=== PATIENT | female | born 2000 | race African-American/Black ===

== ENCOUNTER → 2018-03-20 | Outpatient (CLI) | payer OTHER ==
[2018-03-21 20:13] LABS: CHLAMYDIA TRACHOMATIS, NAA Negative (Negative); NEISSERIA GONORRHOEAE, NAA Negative (Negative)
== END | disposition home or self-care (01) ==
LOC: LAB SHORT 09:53 → LAB 09:53
PROVIDERS: Advanced Practice Midwife
DX: Z11.3 Encounter for screening for infections with a predominantly sexual mode of transmission (principal)
CPT/HCPCS: 87491; 87591

== ENCOUNTER → 2019-02-27 | Outpatient (CLI) | payer OTHER ==
[2019-03-02 11:07] LABS: CHLAMYDIA BY NAA Negative (Negative); GONOCOCCUS BY NAA Negative (Negative); TRICH VAG BY NAA Negative (Negative)
== END | disposition home or self-care (01) ==
LOC: LAB SHORT 15:17 → LAB 15:17
PROVIDERS: Advanced Practice Midwife
DX: Z11.3 Encounter for screening for infections with a predominantly sexual mode of transmission (principal)
CPT/HCPCS: 87491; 87591; 87661

== ENCOUNTER 2019-07-01 08:56 | Day surgery (SDC) | payer OTHER ==
[~2019-07-01] VITALS: Ht 165.1 cm; Wt 64.5 kg
[~2019-07-01 08:56] MED LIST: ALBU90OI INH; ALLER-TEC PO; Inderal40 MG PO; Protopic100 GM TOP; Prozac40 MG PO; TRIA15CR3 TOP
--- NOTE | 2019-07-01 10:29 | NUR ---
Ambulatory in Day Surgery. Surgical site prepped with 2% Chlorhexidine cloth wipe. Pre-Op teaching done. Pt verbalizes understanding. History, Chart, Medications and Allergies reviewed before start of procedure. Lungs clear T/O to Auscultation. Patient confirms NPO status and agrees with scheduled surgery. Pre-Op teaching done. Pt verbalizes understanding. Patient States Post-Procedure ride home has been arranged. Patient reports completing Chlorhexadine shower X2 prior to admission to hospital.
--- NOTE | 2019-07-01 14:32 | NUR ---
PT BROUGHT FROM PACU ALERT AND ORIENTED, C/O OF SOME DIZZINESS. PT 4 INCISION SITES TO ABDOMEN. LEFT SIDE WITH GAUZE AND MEFIX, RIGHT SIDE AND UMBILICAL WITH STERI STRIPS IN PLACE, ALL CDI. THEO PAD WITH NO BLEEDING NOTED.
--- NOTE | 2019-07-01 16:15 | NUR ---
PT DRESSINGS REMAINED CDI T/O RECOVERY. PT HAD SMALL AMOUNT OF SANG CLOTTING DRAINAGE ON THEO PAD WITH STANDING UP. PROVIDED THEO CARE, REPLACED THEO PAD AND MONITORED CLOSELY. SCANT DRAINAGE NOTED PRIOR TO DISCHARGING TO HOME. VSS RETURNED TO NORMAL EVEN AFTER AMBULATING TO THE BATHROOM. DRANK A TOTAL OF 720CC FLUIDS T/O RECOVERY.TOLERATED PO SNACK AND ONE PAIN PILL. Patient up to Ambulate independently. Gait steady. Discharge instructions reviewed with patient. Patient verbalizes understanding. Copy given to patient to take home. Patient States Post-Procedure ride home has been arranged. Discharged via wheelchair to private car for ride home. ALL BELONINGS RETURNED TO PATIENT.
[2019-07-01] MEDS ORDERED: CETI5 ×2 (19:58)
[2019-07-02] MEDS ORDERED: IBUP800 PO ×2 (00:38)
[2019-07-02] MEDS ORDERED: Norco 10-325 T1 EACH PO ×2 (00:41)
--- NOTE | 2019-07-02 11:11 | NUR ---
07/02/19 1111 Reny Ayon VERIFICATIONS: EDIT CHART.
== END 2019-07-01 22:55 | disposition home or self-care (01) ==
LOC: ORSCMMR 08:56 → ORD 11:30 → ORSCMMR 11:30
PROVIDERS: Obstetrics & Gynecology
PROC: 0UB24ZZ Excision of Bilateral Ovaries, Percutaneous Endoscopic Approach (ICD-10-PCS; principal; 2019-07-01 10:30)
DX: D27.1 Benign neoplasm of left ovary (principal); F41.9 Anxiety disorder, unspecified; Z79.899 Other long term (current) drug therapy
CPT/HCPCS: 84703; 88305; A9270-GY; J0330; J1100; J1885; J2250; J2405; J2704; J3010; J7120

== ENCOUNTER 2019-07-01 19:47 | Observation (INO) | payer OTHER ==
[~2019-07-01] VITALS: Ht 170.2 cm; Wt 66.5 kg
[2019-07-01] MEDS ORDERED: CETI5 ×2 (19:58)
[2019-07-01 20:24] LABS: BASOPHILS ABSOLUTE AUTO 0.02 K/mm3 (0.00-0.23); BASOPHILS PERCENT AUTO 0 % (0-2); EOSINOPHILS PERCENT AUTO 0 % (0-6); Hematocrit 34.2 % (33.0-51.0); Hemoglobin 11.2 g/dL (11.5-16.0); IMMATURE GRAN ABSOLUTE AUTO 0.06 K/mm3 (0.00-0.10); IMMATURE GRAN PERCENT AUTO 0 % (0-1); LYMPHOCYTES ABSOLUTE AUTO 1.22 K/mm3 (0.84-5.20); LYMPHOCYTES PERCENT AUTO 8 % (21-46); MONOCYTES ABSOLUTE AUTO 0.78 K/mm3 (0.16-1.47); MONOCYTES PERCENT AUTO 5 % (4-13); Mean Corpuscular HGB Conc 32.7 g/dL (31.5-36.5); Mean Corpuscular Volume 95 fL (80-100); Mean Platelet Volume 10.8 fL (9.1-12.4); NEUTROPHILS ABSOLUTE AUTO 13.19 K/mm3 (1.96-9.15); NEUTROPHILS PERCENT AUTO 86 % (41-73); Platelet Count 247 K/mm3 (150-400); RDW Coefficient Variation 11.8 % (11.7-14.2); RDW Standard Deviation 40.7 fL (35.1-46.3); Red Blood Cell Count 3.61 M/mm3 (3.80-5.20); White Blood Cell Count 15.27 K/mm3 (4.00-11.30)
[2019-07-01 20:45] LABS: Alanine Aminotransfer (ALT/SGP 14 U/L (12-78); Albumin, Blood 3.2 g/dL (3.4-5.0); Albumin/Globulin Ratio 1.3 (0.8-1.8); Alk Phos 36 U/L (50-136); Anion Gap 9 mmol/L (6-16); Aspartate Aminotrans (AST/SGOT 11 U/L (12-37); Bilirubin, Total 0.8 mg/dL (0.1-1.0); Blood Urea Nitrogen 9 mg/dL (8-24); Bun/Creatinine Ratio 13.4 (12.0-20.0); CO2, Blood 23 mmol/L (21-32); Calcium, Blood 7.6 mg/dL (8.5-10.1); Chloride, Blood 104 mmol/L (98-108); Creatinine, Blood 0.67 mg/dL (0.40-1.00); Globulin, Blood 2.5 g/dL (2.2-4.0); Glomerular Filtration Rate >60 (60-); Glucose, Blood 179 mg/dL (70-99); Potassium, Blood 3.8 mmol/L (3.5-5.5); Sodium, Blood 136 mmol/L (136-145); Total Protein, Blood 5.7 g/dL (6.4-8.2)
--- NOTE | 2019-07-01 23:52 | NUR ---
2345 PT ADMITTED TO ROOM 231 PER CART FROM ER; MOTHER AT SIDE AND SUPPORTIVE.
[2019-07-02] MEDS ORDERED: IBUP800 PO ×2 (00:38)
[2019-07-02] MEDS ORDERED: Norco 10-325 T1 EACH PO ×2 (00:41)
[2019-07-02 04:40] LABS: Source, Urine Clean Catch
[2019-07-02 04:45] LABS: Hematocrit 29.3 % (33.0-51.0); Hemoglobin 9.4 g/dL (11.5-16.0); Mean Corpuscular HGB 30.4 pg (26.0-34.0); Mean Corpuscular HGB Conc 32.1 g/dL (31.5-36.5); Mean Corpuscular Volume 95 fL (80-100); Mean Platelet Volume 11.2 fL (9.1-12.4); Platelet Count 212 K/mm3 (150-400); RDW Standard Deviation 41.3 fL (35.1-46.3); Red Blood Cell Count 3.09 M/mm3 (3.80-5.20); White Blood Cell Count 13.53 K/mm3 (4.00-11.30)
[2019-07-02 04:45] LABS: Bilirubin, Urine Neg (Neg); Blood, Urine 4+ (Neg); Glucose Qualitative, Urine Neg (Neg); Ketones, Urine Neg (Neg); Leukocyte Esterase, Urine Neg (Neg); Nitrite, Urine Neg (Neg); Protein, Urine Neg (Neg); Specific Gravity, Urine 1.005 (1.003-1.022); Urobilinogen, Urine NORM (Normal)
[2019-07-02 04:47] LABS: Appearance, Urine Clear (Clear); Color, Urine Pale Yellow (P-Yellow)
--- NOTE | 2019-07-02 04:48 | NUR ---
SHIFT SUMMARY: 19 Y/O FEMALE RESTED COMFORTABLY ALL SHIFT; UP VOID CLEAR YELLOW FLUID (UA TO LAB) WITH GAIT SLOW AND STEADY; DENIES DIZZINESS OR VERTIGO; ABD WOUNDS X 3 WITH DRESSINGS DRY AND INTACT; PT HAS WEAK COUGH UPON REQUEST; PT C/O ABD PAIN TENDERNESS RATED 7/10 WITH MOTRIN 800MG PO GIVEN X 1 WITH RELIEF FELT; MOTHER AT SIDE ALL SHIFT; ALERT AND ORIENTED X 4; BED LOW POSITION WITH CALL LIGHT AT SIDE.
[2019-07-02 04:52] LABS: Bacteria Not Seen /hpf; Red Blood Cells, Urine 0-2 /hpf (0-2); Squamous Epithelial Cells Rare /hpf (Few); White Blood Cells, Urine Not Seen /hpf (0-5)
[2019-07-02 05:14] LABS: Alanine Aminotransfer (ALT/SGP 13 U/L (12-78); Albumin/Globulin Ratio 1.3 (0.8-1.8); Alk Phos 34 U/L (50-136); Anion Gap 5 mmol/L (6-16); Aspartate Aminotrans (AST/SGOT 7 U/L (12-37); Bilirubin, Total 0.7 mg/dL (0.1-1.0); Blood Urea Nitrogen 6 mg/dL (8-24); Bun/Creatinine Ratio 9.7 (12.0-20.0); CO2, Blood 25 mmol/L (21-32); Calcium, Blood 7.5 mg/dL (8.5-10.1); Chloride, Blood 109 mmol/L (98-108); Creatinine, Blood 0.62 mg/dL (0.40-1.00); Globulin, Blood 2.3 g/dL (2.2-4.0); Glomerular Filtration Rate >60 (60-); Glucose, Blood 121 mg/dL (70-99); Potassium, Blood 4.4 mmol/L (3.5-5.5); Sodium, Blood 139 mmol/L (136-145); Total Protein, Blood 5.3 g/dL (6.4-8.2)
--- NOTE | 2019-07-02 13:58 | NUR ---
AMBULATION PT HAS AMBULATED IN HALLS AND TO BATHROOM AND BACK W/O DIFFICULTY. DESIRES TO BE DC'D HOME. VSS.
--- NOTE | 2019-07-02 13:59 | NUR ---
DISCHARGED DC'D IV, CATHETER INTACT. REVIEWED DC INSTRUCTIONS W/PT AND MOTHER; VERBALIZED UNDERSTANDING OF INSTRUCTIONS, MEDS AND FOLLOW UP APPOINTMENTS. PROVIDED ABDOMINAL BINDER FOR COMFORT. DC'D TELE AND SENT UNIT BACK TO PCU. PT GETTING DRESSED.
--- NOTE | 2019-07-02 14:08 | NUR ---
PT LEFT UNIT IN WC ACCOMPANIED BY MOTHER.
--- NOTE | 2019-07-02 15:36 | NUR ---
Per admit trigger, I met with Dario and her mom at bedside. Pt is delightful young woman, who is hopeful for recovery. She appears well-loved and supported by family. Mom and pt appreciative of prayer and spiritual encouragement. Pt being d/cd home shortly.
== END 2019-07-02 14:10 | disposition home or self-care (01) ==
LOC: ER 19:47 → SURS 19:48
PROVIDERS: Physician Assistant; ADMIT Internal Medicine
DX: R55 Syncope and collapse (principal); R53.1 Weakness; I95.9 Hypotension, unspecified; R42 Dizziness and giddiness; E86.0 Dehydration; Z79.899 Other long term (current) drug therapy; Z88.8 Allergy status to other drugs, medicaments and biological substances; Z91.048 Other nonmedicinal substance allergy status; Z91.010 Allergy to peanuts
CPT/HCPCS: 36415; 80053; 81001; 85025; 85027; 90686; 93005; 93010; 96360; 96361; 99285-25; A9270; G0008; G0378; J7030